=== PATIENT | female | born 1985 | race Caucasian/White ===

== ENCOUNTER 2025-07-26 10:58 | Emergency (ER) | payer BC ==
[~2025-07-26] VITALS: Ht 162.6 cm; Wt 52.6 kg
[2025-07-26 11:21] LABS: APPEARANCE,URINE CLEAR (CLEAR); BLOOD, URINE Trace-intact Ery/uL (NEGATIVE); LEUKOCYTE ESTERASE ,URINE Negative (NEGATIVE); NITRITE, URINE NEGATIVE (NEGATIVE); UGLUCOSE Negative (NEGATIVE)
[2025-07-26 11:24] LABS: ADD URINE CULTURE NO; PREGNANCY TEST URINE QUAL NEGATIVE (NEGATIVE); SQUAMOUS EPITHELIAL CELL,UR Few /HPF (None Seen)
[2025-07-26 11:31] LABS: PLATELET COUNT (AUTO) 287 K/uL (150-450); RED BLOOD CELL COUNT(AUTO) 4.34 MIL/uL (4.0-5.2); RED CELL DISTRIBUTION WIDTH 12.9 % (11.5-15.0); WHITE BLOOD COUNT (AUTO) 5.5 K/uL (4.3-11.0)
[2025-07-26 11:34] LABS: CALCIUM, SERUM 9.2 mg/dL (8.5-10.1); CREATININE 0.6 mg/dL (0.6-1.3); SODIUM SERUM 126.0 mmol/L (136-145); UREA NITROGEN, BLOOD 11.0 mg/dL (7-18)
[2025-07-26 11:40] LABS: ASPARTATE AMINOTRANSFERASE 142.0 U/L (15-37); TOTAL PROTEIN, SERUM 7.8 g/dL (6.4-8.2)
[2025-07-26] MEDS: IV NS 0.9% 1,000 ML BAG IV ONE (11:43)
[2025-07-26] MEDS ORDERED: ONDANSETRON HCL/PF 4 MG/2 ML VIAL ONE (11:45)
[2025-07-26] MEDS: ONDANSETRON HCL/PF 4 MG/2 ML VIAL IV ONE (11:54)
[2025-07-26] MEDS ORDERED: ONDA4TAB5 PO (13:04)
[2025-07-26] MEDS ORDERED: DICY10CA37 PO (13:04)
[2025-07-26 13:24] VITALS: BP 126/83; TEMP 98.3; O2SAT 99
== END 2025-07-26 13:24 | disposition home or self-care (01) ==
LOC: ER 11:08
DX: R10.84 Generalized abdominal pain (principal); R11.2 Nausea with vomiting, unspecified; E87.1 Hypo-osmolality and hyponatremia; F41.9 Anxiety disorder, unspecified; K76.0 Fatty (change of) liver, not elsewhere classified
CPT/HCPCS: 99285; 96374; 76700; 96361; 85025; 80048; 83690; 80076; 84703; 81001; 36415; J2405; J7030